=== PATIENT | female | born 1985 | race Caucasian/White ===

== ENCOUNTER 2020-12-10 13:07 | Inpatient (IN) | payer OTHER, SELFPAY ==
--- NOTE | 2020-12-10 07:00 | PC.NURSE ---
refusing to wear armband with patient name/. pt wants to be identified as Hari but upset that that name is not on her armband.
[2020-12-10 11:45] VITALS: BP 121/74; PULSE 70; RESP 18; TEMP 37.1; O2SAT 99
[2020-12-10 13:18] VITALS: BMI 28.1
[2020-12-10 13:28] VITALS: BP 121/74; PULSE 70; RESP 18; TEMP 37.1; O2SAT 99
--- NOTE | 2020-12-10 14:35 | NPU.GN ---
[facility] Topic:Coping skills for stress General Mood of Group: Tamara was not at the facility at this time.
[2020-12-10] MEDS: ondansetron 4 MG Tablet PO (19:51)
[2020-12-10 21:06] VITALS: BP 129/79; PULSE 81; RESP 18; TEMP 37; O2SAT 97
[2020-12-11] MEDS: acetaminophen 325 mg Tablet 650 MG PO (01:49)
[2020-12-11] MEDS: ondansetron 4 MG Tablet PO (01:49)
[2020-12-11 05:55] VITALS: BP 116/68; PULSE 63; RESP 18; TEMP 36.8; O2SAT 97
[2020-12-11] MEDS: blistex lip oint 7 gm Tube 1 APPLIC TOPICAL (08:45)
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
[2020-12-11 14:00] VITALS: BP 115/73; PULSE 69; RESP 18; TEMP 37.4; O2SAT 97
[2020-12-11 21:25] VITALS: BP 177/73; PULSE 60; RESP 15; TEMP 37; O2SAT 98
[2020-12-12 06:00] VITALS: BP 109/64; PULSE 65; RESP 15; TEMP 37.1; O2SAT 98
[2020-12-12 14:00] VITALS: BP 115/78; PULSE 57; RESP 16; TEMP 36.8; O2SAT 98
--- NOTE | 2020-12-12 15:33 | PM.NPN ---
Subjective NPU Subjective: Interval history: I met with the patient alone, then with her and her , as he arrived for his afternoon visit. The patient and I talked about the hallucination she had in May and some other changes her had noted. She got quite tearful when I mentioned that he observed her not hugging her children as much. She felt this made her a bad mother and was very quickly very sad for her. We also talked about her decision to leave her , which from the outside appears to have come out of the blue. She makes sense of it by saying that she never left him, and that they were always really just friends. It may be a form of confabulation, her brains way of making sense of this rapid change in her behavior. She says her mood is better today, sleeping better at night. With her , I discussed the possibility that the Covid had had an effect on her brain last fall, and that some of the changes that are taking place are because of her brains reaction to Covid. She thought that ID made sense, even though she is not really endorsing very many psychiatric symptoms or recognizing that she has had a change in her personality. She does want to take medication that may help with this change. I will increase Zoloft to 100 mg daily and Seroquel from 300 to 400 mg daily. She has no medication side effects. Mental Status Exam MSE Comments: The patient made good eye contact and was cooperative and open to the exam. No psychomotor agitation or retardation. Speech was had a regular rate and rhythm without pressure. She was alert and oriented to person, place, time, and situation. Attention and concentration were intact to exam Memory was fairly good to exam. Mood is improved; however her affect is quite labile, going from bright to sobbing very quickly. Her says that she was like this prior to having Covid, at least to some extent. Thought process: She takes things very personally. Thought content: She denies auditory and visual hallucinations. There are no delusions noted. When he gets the impression that she is quite guarded about perspectives that others may find outside the norm. No suicidal or homicidal ideation. Insight and judgment are still limited. Vitals/I&O/Wt Last Vital Signs Temp 98.2 F 12/12/20 14:00 Pulse 57 L 12/12/20 14:00 Resp 16 12/12/20 14:00 BP 115/78 12/12/20 14:00 Pulse Ox 98 12/12/20 14:00 A&P Assessment and plan (1) Suicide attempt by acetaminophen overdose: Status: Acute (2) Acute psychosis: Status: Acute (3) Major depressive disorder, recurrent, severe with psychotic features: Status: Acute Additional A&P Information The patient is a 35-year-old woman with personality changes starting about 8 or 9 months ago, soon after recovering from a Covid infection. Her reports that she has had a number of psychotic symptoms including auditory hallucinations, delusions that a chip was planted in her brain, and delusions that she is in a relationship with a semifamous figure. These mental status changes have also affected her relationship with her , who she now wants to divorce, and with her children, with whom she gets mad if they get too close to her. This could represent depression with psychosis, new onset independent psychotic disorder, or post-Covid related psychosis. 1. We restarted medications and increased Seroquel to 400 mg daily and Zoloft to 100 mg daily. 2. Continue every 15 minute checks for safety. 3. Encourage individual, group and milieu therapies. 4. Encourage sober living treatment after discharge at the highest level of care to which he is willing to commit. 5. Continue to explore causes of her psychiatric changes. 6. The patient's is quite concerned about his 's ability to parent their children. He would like advice about how to handle the situation prior to discharge. Involuntary Hold Information 96 Hour Hold: 96 Hour Involuntary Admission: No Attestations NPU Medical Necessity Statement*: Psychiatric hospitalization is medically necessary to prevent access to lethal means, to reevaluate medication, and to coordinate a safe discharge. Patient will be in the hospital for over 2 midnights. Likely length of stay is 4 to 6 days. Coding Level of Care Code Acute Residential Subcontractor for Chelsea Quevedo Diagnoses Suicide attempt by acetaminophen overdose T39.1X2A Acute psychosis F23 Major depressive disorder, recurrent, severe with psychotic features F33.3
[2020-12-12] MEDS: pantoprazole DR 40 mg Tablet PO (17:49)
[2020-12-12 20:52] VITALS: BP 114/77; PULSE 81; RESP 17; TEMP 37; O2SAT 98
[2020-12-12] MEDS: sertraline 100 mg Tablet PO (21:50)
[2020-12-12] MEDS: quetiapine 300 mg Tablet PO (21:50)
[2020-12-13 06:00] VITALS: BP 120/79; PULSE 87; RESP 18; TEMP 36.9; O2SAT 97
[2020-12-13] MEDS: pantoprazole DR 40 mg Tablet PO ×2 (09:24→18:15)
[2020-12-13 14:00] VITALS: BP 107/66; PULSE 83; RESP 17; TEMP 36.9; O2SAT 97
--- NOTE | 2020-12-13 14:37 | PM.NPN ---
Mental Status Exam MSE Comments: This is an overweight versus obese white female with adequate grooming and eye contact. No abnormal movements except for mild psychomotor retardation. Cooperative with exam in mild distress. Speech was decreased rate and volume. Mood described as anxious, affect congruent. Thought process organized. Thought content: Patient denied suicidal or homicidal ideation, she continues to endorse erotomanic beliefs and paranoia, and appears guarded and anxious, she denied current auditory or visual hallucinations. Attention and concentration were intact memory appeared unreliable but none were formally tested. She is alert and oriented x3. Insight and judgment are limited and impulse control is limited. Vitals/I&O/Wt Last Vital Signs Temp 98.2 F 12/13/20 21:02 Pulse 68 12/13/20 21:02 Resp 19 H 12/13/20 21:02 BP 110/76 12/13/20 21:02 Pulse Ox 97 12/13/20 21:02 A&P Additional A&P Information (1) Suicide attempt by acetaminophen overdose: (2) Acute psychosis: (3) Major depressive disorder, recurrent, severe with psychotic features: Additional A&P Information The patient is a 35-year-old woman with personality changes starting about 8 or 9 months ago, soon after recovering from a Covid infection. Her reports that she has had a number of psychotic symptoms including auditory hallucinations, delusions that a chip was planted in her brain, and delusions that she is in a relationship with a semifamous figure. These mental status changes have also affected her relationship with her , who she now wants to divorce, and with her children, with whom she gets mad if they get too close to her. This could represent depression with psychosis, new onset independent psychotic disorder, or post-Covid related psychosis. 1. Identify why the Seroquel is not at 400 mg and then consider increasing Seroquel to 400 mg daily. 2. Continue every 15 minute checks for safety. 3. Encourage individual, group and milieu therapies. 4. Encourage sober living treatment after discharge at the highest level of care to which she is willing to commit. 5. Continue to explore causes of her psychiatric changes. 6. The patient's is quite concerned about his 's ability to parent their children. He would like advice about how to handle the situation prior to discharge. Involuntary Hold Information 96 Hour Hold: 96 Hour Involuntary Admission: No Attestations NPU Medical Necessity Statement*: Inpatient hospitalization is medically necessary and the clinically appropriate intervention at this time. We will monitor medications and make changes as indicated. Likely length of stay 2-4 days. Coding Level of Care Code Acute Certified Surgical Technologist for Chelsea Quevedo
[2020-12-13 21:02] VITALS: BP 110/76; PULSE 68; RESP 19; TEMP 36.8; O2SAT 97
[2020-12-13] MEDS: quetiapine 300 mg Tablet PO (22:00)
[2020-12-13] MEDS: sertraline 100 mg Tablet PO (22:00)
[2020-12-14 06:00] VITALS: BP 115/76; PULSE 88; RESP 17; TEMP 36.5; O2SAT 98
[2020-12-14] MEDS: pantoprazole DR 40 mg Tablet PO ×2 (09:12→17:44)
[2020-12-14] MEDS: levothyroxine 100 mcg Tablet PO (09:12)
--- NOTE | 2020-12-14 12:28 | NPU.GN ---
[facility] Topic:Depression General Mood of Group: Tamara refused group today, she stated that she had a bead night and was too tired to go to group.
[2020-12-14 14:00] VITALS: BP 105/69; PULSE 75; RESP 17; TEMP 36.7; O2SAT 97
--- NOTE | 2020-12-14 16:12 | PM.NPN ---
Subjective NPU Subjective: Interval history: Patient presents today reporting that she is feeling tired from being restarted on the medication but doing okay overall. She was having some challenge secondary to intrusive patient on the unit. She reports that that really triggered her anxiety and made her want to isolate a bit. We discussed talking with her to get a sense of how he feels she is doing and considering medication adjustments after that. Mental Status Exam MSE Comments: This is an overweight versus obese white female with adequate grooming and eye contact. No abnormal movements except for mild psychomotor retardation. Cooperative with exam in mild distress. Speech was decreased rate and volume. Mood described as anxious, affect congruent. Thought process organized. Thought content: Patient denied suicidal or homicidal ideation, she continues to endorse erotomanic beliefs and paranoia, and appears guarded and anxious, she denied current auditory or visual hallucinations. Attention and concentration were intact memory appeared unreliable but none were formally tested. She is alert and oriented x3. Insight and judgment are limited and impulse control is limited. Vitals/I&O/Wt Last Vital Signs Temp 97.5 F L 12/14/20 20:15 Pulse 70 12/14/20 20:15 Resp 18 12/14/20 20:15 BP 113/72 12/14/20 20:15 Pulse Ox 98 12/14/20 20:15 A&P Additional A&P Information (1) Suicide attempt by acetaminophen overdose: (2) Acute psychosis: (3) Major depressive disorder, recurrent, severe with psychotic features: Additional A&P Information The patient is a 35-year-old woman with personality changes starting about 8 or 9 months ago, soon after recovering from a Covid infection. Her reports that she has had a number of psychotic symptoms including auditory hallucinations, delusions that a chip was planted in her brain, and delusions that she is in a relationship with a semifamous figure. These mental status changes have also affected her relationship with her , who she now wants to divorce, and with her children, with whom she gets mad if they get too close to her. This could represent depression with psychosis, new onset independent psychotic disorder, or post-Covid related psychosis. 1. Identify why the Seroquel is not at 400 mg and then consider increasing Seroquel to 400 mg daily. 2. Continue every 15 minute checks for safety. 3. Encourage individual, group and milieu therapies. 4. Encourage sober living treatment after discharge at the highest level of care to which she is willing to commit. 5. Continue to explore causes of her psychiatric changes. 6. The patient's is quite concerned about his 's ability to parent their children. He would like advice about how to handle the situation prior to discharge. Involuntary Hold Information 96 Hour Hold: 96 Hour Involuntary Admission: No Attestations NPU Medical Necessity Statement*: Inpatient hospitalization is medically necessary and the clinically appropriate intervention at this time. We will monitor medications and make changes as indicated. Likely length of stay 2-4 days. Coding Level of Care Code Acute Filter Cleaner for Chelsea Quevedo
[2020-12-14 20:15] VITALS: BP 113/72; PULSE 70; RESP 18; TEMP 36.4; O2SAT 98
[2020-12-14] MEDS: sertraline 100 mg Tablet PO (20:32)
[2020-12-14] MEDS: quetiapine 300 mg Tablet PO (20:32)
[2020-12-15 06:00] VITALS: BP 111/72; PULSE 68; RESP 17; TEMP 36.6; O2SAT 99
[2020-12-15] MEDS: levothyroxine 100 mcg Tablet PO (07:50)
[2020-12-15] MEDS: pantoprazole DR 40 mg Tablet PO ×2 (07:51→21:51)
[2020-12-15 14:00] VITALS: BP 96/59; PULSE 67; RESP 16; TEMP 37.1; O2SAT 91
--- NOTE | 2020-12-15 17:29 | P.PN_ITS ---
Subjective NPU Subjective: Interval history: Patient presents today reporting that she feeling better than yesterday and feeling that her anxiety is abating and she is having a decrease in her psychotic thinking. Treatment team was able to connect with who was reporting that he had concerns about the voices not being fully managed. We discussed the risk benefits and alternatives of making that increase in the Seroquel to 400 mg and she understood agreed proceed as documented in this note. We discussed beginning conversations about discharge in the morning. Mental Status Exam MSE Comments: This is an overweight versus obese white female with adequate grooming and eye contact. No abnormal movements except for mild psychomotor retardation. Cooperative with exam in no acute distress. Speech was more normal rate and volume. Mood described as a little better, affect congruent. Thought process organized. Thought content: Patient denied suicidal or homicidal ideation, she continues to endorse erotomanic beliefs and paranoia, and appears less guarded and anxious, she denied current auditory or visual hallucinations. Attention and concentration were intact memory appeared unr eliable but none were formally tested. She is alert and oriented x3. Insight and judgment are limited and impulse control is limited. Vitals/I&O/Wt Last Vital Signs Temp 98.1 F 12/15/20 22:00 Pulse 67 12/15/20 22:00 Resp 18 12/15/20 22:00 BP 116/81 12/15/20 22:00 Pulse Ox 100 12/15/20 22:00 Weight last 48 hrs Weight 83.915 kg A&P Additional A&P Information (1) Suicide attempt by acetaminophen overdose: (2) Acute psychosis: (3) Major depressive disorder, recurrent, severe with psychotic features: The patient is a 35-year-old woman with personality changes starting about 8 or 9 months ago, soon after recovering from a Covid infection. Her reports that she has had a number of psychotic symptoms including auditory hallucinations, delusions that a chip was planted in her brain, and delusions that she is in a relationship with a semifamous figure. These mental status changes have also affected her relationship with her , who she now wants to divorce, and with her children, with whom she gets mad if they get too close to her. This could represent depression with psychosis, new onset independent psychotic disorder, or post-Covid related psychosis. 1. Continue current medications except increase Seroquel to 400 mg p.o. nightly. 2. Continue every 15 minute checks for safety. 3. Encourage individual, group and milieu therapies. 4. Encourage sober living treatment after discharge at the highest level of care to which she is willing to commit. 5. The patient's is quite concerned about his 's ability to parent their children. He would like advice about how to handle the situation prior to discharge. Involuntary Hold Information 96 Hour Hold: 96 Hour Involuntary Admission: No Attestations NPU Medical Necessity Statement*: Inpatient hospitalization is medically necessary and the clinically appropriate intervention at this time. We will monitor medications and make changes as indicated. Likely length of stay 1-3 days. Coding Level of Care Code Acute Cable Respooler for Chelsea Quevedo
[2020-12-15 20:26] VITALS: BP 116/81; PULSE 67; RESP 18; TEMP 36.7; O2SAT 100
[2020-12-15] MEDS: sertraline 100 mg Tablet PO (21:51)
[2020-12-15] MEDS: quetiapine 300 mg Tablet PO (21:51)
[2020-12-15] MEDS: quetiapine 100 mg Tablet PO (21:51)
[2020-12-15 22:00] VITALS: BP 116/81; PULSE 67; RESP 18; TEMP 36.7; O2SAT 100
[2020-12-16 05:21] VITALS: BMI 28.1
[2020-12-16 06:00] VITALS: BP 110/73; PULSE 79; RESP 22; TEMP 36.4; O2SAT 99
[2020-12-16] MEDS: levothyroxine 100 mcg Tablet PO (08:36)
[2020-12-16] MEDS: pantoprazole DR 40 mg Tablet PO ×2 (08:36→21:06)
[2020-12-16 14:28] VITALS: BP 109/69; PULSE 80; RESP 18; TEMP 37.1; O2SAT 97
--- NOTE | 2020-12-16 18:30 | PM.NPN ---
Subjective NPU Subjective: Interval history: Patient presents today reporting continued improvement in her symptoms. She agreed to reach out to her and identify his take on where things are. She reports that he will be off tomorrow so considering discharge tomorrow might be a viable approach given that the children are out of town right now. She reports that she is tolerating the resumption of her medication and the titration to effect. She denies any side effects and she is having no reported residual daytime sleepiness. Mental Status Exam MSE Comments: This is an overweight versus obese white female with adequate grooming and eye contact. No abnormal movements. Cooperative with exam in no acute distress. Speech was more normal rate and volume. Mood described as better, affect congruent. Thought process organized. Thought content: Patient denied suicidal or homicidal ideation, no delusions reported or noted, she denied current auditory or visual hallucinations. Attention and concentration were intact memory appeared unreliable but none were formally tested. She is alert and oriented x3. Insight and judgment are limited, but improving and impulse control is limited, but improving. Vitals/I&O/Wt Last Vital Signs Temp 98.6 F 12/16/20 21:53 Pulse 65 12/16/20 21:53 Resp 18 12/16/20 21:53 BP 109/64 12/16/20 21:53 Pulse Ox 97 12/16/20 21:53 12/16/20 12/16/20 12/17/20 14:59 22:59 06:59 Intake Total 320 / 320 Balance 320 / 320 Weight last 48 hrs Weight 83.915 kg A&P Additional A&P Information (1) Suicide attempt by acetaminophen overdose: (2) Acute psychosis: (3) Major depressive disorder, recurrent, severe with psychotic features: The patient is a 35-year-old woman with personality changes starting about 8 or 9 months ago, soon after recovering from a Covid infection. Her reports that she has had a number of psychotic symptoms including auditory hallucinations, delusions that a chip was planted in her brain, and delusions that she is in a relationship with a semifamous figure. These mental status changes have also affected her relationship with her , who she now wants to divorce, and with her children, with whom she gets mad if they get too close to her. This could represent depression with psychosis, new onset independent psychotic disorder, or post-Covid related psychosis. 1. Continue current medications .. 2. Continue every 15 minute checks for safety. 3. Encourage individual, group and milieu therapies. 4. Encourage sober living treatment after discharge at the highest level of care to which she is willing to commit. 5. The patient's is quite concerned about his 's ability to parent their children. He would like advice about how to handle the situation prior to discharge. Involuntary Hold Information 96 Hour Hold: 96 Hour Involuntary Admission: No Attestations NPU Medical Necessity Statement*: Inpatient hospitalization is medically necessary and the clinically appropriate intervention at this time. We will monitor medications and make changes as indicated. Likely length of stay 1-3 days. Coding Level of Care Code Acute Specialty Development Consultant for Chelsea Quevedo
[2020-12-16] MEDS: sertraline 100 mg Tablet PO (21:06)
[2020-12-16] MEDS: quetiapine 100 mg Tablet PO (21:06)
[2020-12-16] MEDS: quetiapine 300 mg Tablet PO (21:06)
--- NOTE | 2020-12-16 21:43 | PC.NURSE ---
Patient called stating that patient reported that he needed to leave at 0800 to come get her in the morning. concerned that patient continues to make comments regarding statement made by patient Don't be surprised if someone comes to the house tomorrow . he will be on his way . wants to continue to make progress but states she definitely is still having thoughts that aren't true. Instructed to contact nursing tomorrow and Dr. Adams with questions and concerns regarding his discharge. verbalized understanding.
[2020-12-16 21:53] VITALS: BP 109/64; PULSE 65; RESP 18; TEMP 37; O2SAT 97
[2020-12-17 06:00] VITALS: BP 116/69; PULSE 80; RESP 18; TEMP 37.1; O2SAT 98
[2020-12-17] MEDS: levothyroxine 100 mcg Tablet PO (07:57)
[2020-12-17] MEDS: pantoprazole DR 40 mg Tablet PO (07:57)
[2020-12-17 14:00] VITALS: BP 107/66; PULSE 70; RESP 16; TEMP 37.2; O2SAT 98
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
[2020-12-17 17:03] VITALS: BP 107/66; PULSE 70; RESP 16; TEMP 37.2; O2SAT 98
== END 2020-12-17 17:10 | disposition home or self-care (01) | DRG 885 ==
PROVIDERS: Admitting Provider Psychiatry & Neurology Child & Adolescent Psychiatry; Visit Provider Psychiatry & Neurology Psychiatry
DX: F33.3 Major depressive disorder, recurrent, severe with psychotic symptoms (principal); F23 Brief psychotic disorder; Z91.5 Personal history of self-harm; K21.9 Gastro-esophageal reflux disease without esophagitis; K58.9 Irritable bowel syndrome, unspecified; E03.9 Hypothyroidism, unspecified; Z86.16 Personal history of COVID-19; Z63.0 Problems in relationship with spouse or partner; Z87.19 Personal history of other diseases of the digestive system; Z62.810 Personal history of physical and sexual abuse in childhood; Z81.8 Family history of other mental and behavioral disorders; Z81.1 Family history of alcohol abuse and dependence
CPT/HCPCS: Q0162